=== PATIENT | male | born 1945 | race Two or more races ===

== ENCOUNTER 2023-07-07 02:24 | Emergency (ER) | payer MEDICARE, OTHER ==
[~2023-07-07] VITALS: Ht 165.1 cm; Wt 45.5 kg
[2023-07-07] MEDS ORDERED: methylPREDNISolone SOD SUCC 40 MG/ML VL IV ONE (02:30)
[2023-07-07] MEDS ORDERED: IPRATROPIUM BROM 0.5 MG/2.5ML INH SOL NEB ONE ×2 (02:30→02:45)
[2023-07-07] MEDS ORDERED: ALBUTEROL SULF 2.5 MG/0.5ML(0.5%) NEB SOLN NEB ONE ×2 (02:30→02:45)
[2023-07-07 02:33] VITALS: PULSE 88; RESP 20; O2SAT 100
[2023-07-07] MEDS ORDERED: SODIUM CHLORIDE 0.9% 1,000 ML IV ONE (02:45)
[2023-07-07] MEDS ORDERED: PANTOPRAZOLE 40 MG/10 ML VIAL INJ IV ONE (02:45)
[2023-07-07] MEDS ORDERED: ONDANSETRON HCL 4 MG/2 ML VIAL IV ONE (02:45)
[2023-07-07] MEDS ORDERED: VANCOMYCIN PER PHARMACY 1,000 MG IV SCH (02:45)
[2023-07-07] MEDS ORDERED: cefTRIAXone 1GM/50ML D5W 50 ML IV SCH (02:45)
[2023-07-07] MEDS ORDERED: ACETAMINOPHEN 325 MG TAB PO PRN (02:45)
[2023-07-07] MEDS ORDERED: MAGNESIUM SULFATE 1GM/100ML 100 ML IV ONE (03:00)
[2023-07-07] MEDS ORDERED: AZITHROMYCIN 500MG/ 250ML 250 ML IV ONE (03:00)
[2023-07-07 03:12] LABS: INR 1.19 (0.9-1.15); Partial Thromboplastin Time 20.5 SEC (24.5-34.5); Prothrombin Time 12.4 sec (9.3-11.8)
[2023-07-07 03:14] LABS: Base Excess -0.7 mmol/L (-2.0-2.0)
[2023-07-07 03:26] LABS: Alanine Aminotransferase 11 U/L (7-40); Albumin 3.9 g/dL (3.2-4.8); Alkaline Phosphatase 75 U/L (46-116); Anion Gap 5 (5-15); Aspartate Aminotransferase 14 U/L (13-40); BUN/Creatinine Ratio 16.3 (10.0-20.0); Bilirubin, Total 0.4 mg/dL (0.2-1.0); Blood Urea Nitrogen 16 mg/dL (9-23); Calcium 8.6 mg/dL (8.7-10.4); Carbon Dioxide 27 mmol/L (20-30); Chloride 107 mmol/L (98-107); Glucose 142 mg/dL (74-106); Magnesium 1.7 mg/dL (1.6-2.6); Sodium 139 mmol/L (136-145); Total Protein 6.2 g/dL (5.7-8.2)
[2023-07-07 04:16] LABS: Basophils # (auto) 0 10 ^3/uL (0-0.2); Basophils % (auto) 0.1 % (0.0-2.0); Eosinophils # (auto) 0.1 10 ^3/uL (0-0.8); Eosinophils % (auto) 0.5 % (0.0-7.0); Hematocrit 42.2 % (41.0-53.0); Hemoglobin 13.9 g/dL (13.5-17.5); Lymphocytes # (auto) 1.1 10 ^3/uL (0.4-5.4); Lymphocytes % (auto) 9.1 % (10.0-50.0); Mean Corpuscular Hemoglobin 32.3 pg (28.0-32.0); Mean Corpuscular Hgb Conc. 32.8 g/dL (32.0-36.0); Mean Corpuscular Volume 98.3 fL (80.0-100.0); Monocytes # (auto) 0.6 10 ^3/uL (0-1.3); Monocytes % (auto) 5.4 % (0.0-12.0); Neutrophils # (auto) 9.9 10 ^3/uL (1.6-8.6); Neutrophils % (auto) 84.9 % (37.0-80.0); Nucleated Red Blood Cells % 0.1 %; Red Cell Distribution Width 13.9 % (11.8-14.3); White Blood Cell 11.7 10^3/uL (4.4-10.8)
[2023-07-07 04:29] LABS: Rapid Influenza A Negative (Negative); Rapid Influenza B Negative (Negative)
[2023-07-07 04:31] LABS: COVID19 ANTIGEN SOFIA FIA NEGATIVE (NEGATIVE)
[2023-07-07] MEDS ORDERED: VANCOMYCIN 1GM/250ML 250 ML IV ONE (05:15)
[2023-07-07 07:50] VITALS: PULSE 83; RESP 19; O2SAT 99
[2023-07-07 09:18] VITALS: BP 118/95; PULSE 83; RESP 21; TEMP 98; O2SAT 98
[2023-07-07] MEDS ORDERED: ENOXAPARIN SOD 40 MG/0.4 ML SYRINGE SC SCH (10:00)
== END 2023-07-07 09:48 | disposition short-term general hospital (02) ==
LOC: EDBD 02:24 → ER 02:24
DX: R06.02 Shortness of breath (principal); R06.2 Wheezing; J44.9 Chronic obstructive pulmonary disease, unspecified; Z79.899 Other long term (current) drug therapy
CPT/HCPCS: 36415; 36600; 71045; 80053; 82805; 83605; 83735; 83880; 84484; 85610; 85730; 86850; 86900; 86901; 87040; 87426; 87804; 94640; 94644; 94660; 96365; 96366; 96367; 96368; 96375; 99285; C9113; J0456; J0696; J2405; J2920; J3370; J3475; J7644; 93005

== ENCOUNTER 2023-09-12 10:42 | Emergency (ER) | payer OTHER ==
[~2023-09-12] VITALS: Ht 167.6 cm; Wt 54.5 kg
[2023-09-12 11:04] VITALS: PULSE 84; RESP 21; O2SAT 99
[2023-09-12] MEDS ORDERED: ALBUTEROL SULF 2.5 MG/0.5ML(0.5%) NEB SOLN HHN ONE (11:45)
[2023-09-12] MEDS ORDERED: IPRATROPIUM BROM 0.5 MG/2.5ML INH SOL HHN ONE (11:45)
[2023-09-12] MEDS ORDERED: methylPREDNISolone SOD SUCC 125 MG/2 ML VL IV ONE (11:45)
[2023-09-12 12:05] LABS: Basophils # (auto) 0 10 ^3/uL (0-0.2); Basophils % (auto) 0.3 % (0.0-2.0); Eosinophils # (auto) 0.1 10 ^3/uL (0-0.8); Eosinophils % (auto) 0.9 % (0.0-7.0); Hematocrit 42.5 % (41.0-53.0); Hemoglobin 13.8 g/dL (13.5-17.5); Lymphocytes # (auto) 1.1 10 ^3/uL (0.4-5.4); Lymphocytes % (auto) 14.2 % (10.0-50.0); Mean Corpuscular Hemoglobin 32.3 pg (28.0-32.0); Mean Corpuscular Hgb Conc. 32.5 g/dL (32.0-36.0); Mean Corpuscular Volume 99.2 fL (80.0-100.0); Monocytes # (auto) 0.5 10 ^3/uL (0-1.3); Monocytes % (auto) 7.3 % (0.0-12.0); Neutrophils # (auto) 5.7 10 ^3/uL (1.6-8.6); Neutrophils % (auto) 77.3 % (37.0-80.0); Red Blood Cells 4.28 10^6/uL (4.5-5.90); Red Cell Distribution Width 14.5 % (11.8-14.3); White Blood Cell 7.4 10^3/uL (4.4-10.8)
[2023-09-12] MEDS ORDERED: ALBUTEROL MEDNEB 2.5 mg/3ml NEB ONE (12:21)
[2023-09-12 12:26] LABS: Alanine Aminotransferase 15 U/L (7-40); Albumin 4.1 g/dL (3.2-4.8); Alkaline Phosphatase 71 U/L (46-116); Anion Gap 4 (5-15); BUN/Creatinine Ratio 18.6 (10.0-20.0); Bilirubin, Total 0.7 mg/dL (0.2-1.0); Blood Urea Nitrogen 16 mg/dL (9-23); Calcium 8.6 mg/dL (8.7-10.4); Carbon Dioxide 31 mmol/L (20-30); Chloride 105 mmol/L (98-107); Glucose 103 mg/dL (74-106); Magnesium 1.9 mg/dL (1.6-2.6); Potassium 4.2 mmol/L (3.5-5.1); Sodium 140 mmol/L (136-145)
[2023-09-12 12:27] LABS: Total Protein 5.9 g/dL (5.7-8.2)
[2023-09-12 12:33] LABS: Aspartate Aminotransferase 17 U/L (13-40)
[2023-09-12 12:39] LABS: COVID19 ANTIGEN SOFIA FIA NEGATIVE (NEGATIVE)
[2023-09-12 12:42] LABS: Base Excess 0.5 mmol/L (-2.0-2.0)
[2023-09-12 17:52] LABS: Urine Bacteria NONE SEEN /hpf (None Seen); Urine Blood Negative /uL (Negative); Urine Clarity Clear (Clear); Urine Color Yellow (Yellow); Urine Mucus FEW (None Seen); Urine Protein, UAD TRACE (Negative); Urine Specific Gravity 1.026 (1.001-1.035); Urine WBC 1 /hpf (0 - 3)
[2023-09-12 19:30] VITALS: PULSE 71; RESP 14; O2SAT 98
[2023-09-13 00:15] VITALS: BP 139/55; PULSE 79; RESP 18; TEMP 98.4; O2SAT 97
== END 2023-09-13 00:34 | disposition short-term general hospital (02) ==
LOC: EDBD 10:42 → ER 10:42
DX: J96.01 Acute respiratory failure with hypoxia (principal); J44.1 Chronic obstructive pulmonary disease with (acute) exacerbation; Z94.9 Transplanted organ and tissue status, unspecified; Z20.822 Contact with and (suspected) exposure to COVID-19
CPT/HCPCS: 36415; 36600; 71045; 80053; 81001; 82805; 83605; 83735; 83880; 84484; 85025; 85379; 87040; 87426; 93005; 94640; 96374; 99291; J2930; J7644

== ENCOUNTER 2023-09-25 15:55 | Emergency (ER) | payer OTHER ==
[~2023-09-25] VITALS: Ht 180.3 cm; Wt 65.0 kg
[2023-09-25 17:14] LABS: Basophils # (auto) 0 10 ^3/uL (0-0.2); Basophils % (auto) 0.2 % (0.0-2.0); Eosinophils # (auto) 0.1 10 ^3/uL (0-0.8); Eosinophils % (auto) 1.2 % (0.0-7.0); Hematocrit 44.2 % (41.0-53.0); Hemoglobin 14.6 g/dL (13.5-17.5); Lymphocytes # (auto) 1.6 10 ^3/uL (0.4-5.4); Lymphocytes % (auto) 21.2 % (10.0-50.0); Mean Corpuscular Hemoglobin 32.8 pg (28.0-32.0); Mean Corpuscular Volume 99.2 fL (80.0-100.0); Monocytes # (auto) 0.6 10 ^3/uL (0-1.3); Monocytes % (auto) 7.7 % (0.0-12.0); Neutrophils # (auto) 5.1 10 ^3/uL (1.6-8.6); Neutrophils % (auto) 69.7 % (37.0-80.0); Nucleated Red Blood Cells % 0.1 %; Red Blood Cells 4.45 10^6/uL (4.5-5.90); Red Cell Distribution Width 14.7 % (11.8-14.3); White Blood Cell 7.3 10^3/uL (4.4-10.8)
[2023-09-25 17:27] LABS: Alanine Aminotransferase 16 U/L (7-40); Albumin 4.2 g/dL (3.2-4.8); Alkaline Phosphatase 62 U/L (46-116); Anion Gap 2 (5-15); Aspartate Aminotransferase 15 U/L (13-40); BUN/Creatinine Ratio 12.2 (10.0-20.0); Bilirubin, Total 0.5 mg/dL (0.2-1.0); Blood Urea Nitrogen 11 mg/dL (9-23); Calcium 8.9 mg/dL (8.5-10.1); Carbon Dioxide 36 mmol/L (20-30); Chloride 106 mmol/L (98-107); Glucose 84 mg/dL (74-106); Potassium 3.9 mmol/L (3.5-5.1); Sodium 144 mmol/L (136-145); Total Protein 6.2 g/dL (5.7-8.2)
[2023-09-25 17:40] LABS: Lipase 35 U/L (12-53)
[2023-09-25] MEDS ORDERED: IPRATROPIUM BROM 0.5 MG/2.5ML INH SOL NEB ONE (18:15)
[2023-09-25] MEDS ORDERED: ALBUTEROL SULF 2.5 MG/0.5ML(0.5%) NEB SOLN NEB ONE (18:15)
[2023-09-25] MEDS ORDERED: methylPREDNISolone SOD SUCC 125 MG/2 ML VL IV ONE (18:15)
[2023-09-25] MEDS ORDERED: IPRATROPIUM BROM 0.5 MG/2.5ML INH SOL ONE (18:19)
[2023-09-25] MEDS ORDERED: ALBUTEROL SULF 2.5 MG/0.5ML(0.5%) NEB SOLN ONE (18:19)
[2023-09-25 23:16] VITALS: PULSE 86; RESP 25; O2SAT 94
[2023-09-25] MEDS ORDERED: methylPREDNISolone SOD SUCC 125 MG/2 ML VL ONE (23:27)
[2023-09-25] MEDS ORDERED: HYDROcodone-ACET 5/325MG TAB ONE (23:29)
[2023-09-25] MEDS ORDERED: HYDROcodone-ACET 5/325MG TAB PO ONE (23:30)
[2023-09-26 00:21] VITALS: BP 159/74; PULSE 64; RESP 24; TEMP 97.4; O2SAT 94
== END 2023-09-26 00:31 | disposition short-term general hospital (02) ==
LOC: ER 15:55
DX: K56.609 Unspecified intestinal obstruction, unspecified as to partial versus complete obstruction (principal); J44.1 Chronic obstructive pulmonary disease with (acute) exacerbation; K59.00 Constipation, unspecified; F17.210 Nicotine dependence, cigarettes, uncomplicated; Z90.49 Acquired absence of other specified parts of digestive tract; Z90.89 Acquired absence of other organs
CPT/HCPCS: 36415; 71045; 74176; 80053; 83605; 83690; 83880; 84484; 85025; 93005; 94640; 96374; 99285; J2930; J7644

== ENCOUNTER 2024-05-17 17:38 | Emergency (ER) | payer OTHER ==
[~2024-05-17] VITALS: Ht 162.6 cm; Wt 59.0 kg
[2024-05-17 18:00] VITALS: PULSE 81; RESP 22; O2SAT 96
[2024-05-17 18:16] LABS: Basophils # (auto) 0.1 10 ^3/uL (0-0.2); Basophils % (auto) 0.4 % (0.0-2.0); Eosinophils # (auto) 0.1 10 ^3/uL (0-0.8); Eosinophils % (auto) 0.5 % (0.0-7.0); Hematocrit 41.7 % (41.0-53.0); Hemoglobin 14.1 g/dL (13.5-17.5); Lymphocytes # (auto) 0.6 10 ^3/uL (0.4-5.4); Lymphocytes % (auto) 3.8 % (10.0-50.0); Mean Corpuscular Hemoglobin 32.6 pg (28.0-32.0); Mean Corpuscular Hgb Conc. 33.8 g/dL (32.0-36.0); Mean Corpuscular Volume 96.5 fL (80.0-100.0); Monocytes # (auto) 0.9 10 ^3/uL (0-1.3); Monocytes % (auto) 5.2 % (0.0-12.0); Neutrophils # (auto) 14.7 10 ^3/uL (1.6-8.6); Neutrophils % (auto) 90.1 % (37.0-80.0); Red Blood Cells 4.32 10^6/uL (4.5-5.90); Red Cell Distribution Width 14.4 % (11.8-14.3); White Blood Cell 16.3 10^3/uL (4.4-10.8)
[2024-05-17 18:37] LABS: Alanine Aminotransferase 14 U/L (7-40); Alkaline Phosphatase 71 U/L (46-116); Anion Gap 2 (5-15); Aspartate Aminotransferase 12 U/L (13-40); BUN/Creatinine Ratio 15.4 (10.0-20.0); Blood Urea Nitrogen 12 mg/dL (9-23); Calcium 9.3 mg/dL (8.7-10.4); Carbon Dioxide 31 mmol/L (20-30); Chloride 101 mmol/L (98-107); Glucose 110 mg/dL (74-106); Magnesium 2.1 mg/dL (1.6-2.6); Potassium 4.4 mmol/L (3.5-5.1); Sodium 134 mmol/L (136-145)
[2024-05-17 18:38] LABS: Bilirubin, Total 0.7 mg/dL (0.2-1.0)
[2024-05-17] MEDS: methylPREDNISolone SOD SUCC 125 MG/2 ML VL IV ONE (18:40)
[2024-05-17 18:41] LABS: INR 1.03 (0.9-1.15); Partial Thromboplastin Time 27.6 SEC (24.5-34.5); Prothrombin Time 10.9 sec (9.3-11.8)
[2024-05-17] MEDS: IPRATROPIUM BROM 0.5 MG/2.5ML INH SOL HHN ONE (18:51)
[2024-05-17] MEDS: ALBUTEROL SULF 2.5 MG/0.5ML(0.5%) NEB SOLN HHN ONE (18:52)
[2024-05-17 18:55] LABS: Albumin 3.9 g/dL (3.2-4.8)
[2024-05-17] MEDS: ONDANSETRON HCL 4 MG/2 ML VIAL IV ONE ×2 (19:28→23:02)
[2024-05-17] MEDS: MORPHINE SULFATE 4 MG/ML SYR/VIAL IV ONE (19:29)
[2024-05-17] MEDS: AZITHROMYCIN 500MG/ 250ML 250 ML IV ONE (20:20)
[2024-05-17 21:13] LABS: Base Excess 4.1 mmol/L (-2.0-2.0)
[2024-05-17 21:38] LABS: COVID19 ANTIGEN SOFIA FIA NEGATIVE (NEGATIVE)
[2024-05-17 21:39] LABS: Rapid Influenza A Negative (Negative); Rapid Influenza B Negative (Negative)
[2024-05-17] MEDS: MORPHINE SULFATE INJ 2 MG/ml SYRG IV ONE (23:03)
[2024-05-18 01:58] VITALS: BP 112/43; PULSE 80; RESP 16; TEMP 98.5; O2SAT 96
== END 2024-05-18 01:59 | disposition admitted as inpatient to this hospital (09) ==
LOC: EDBD 17:38 → ER 17:39
DX: J44.1 Chronic obstructive pulmonary disease with (acute) exacerbation (principal); J96.01 Acute respiratory failure with hypoxia; F17.210 Nicotine dependence, cigarettes, uncomplicated; Z98.890 Other specified postprocedural states; Z20.822 Contact with and (suspected) exposure to COVID-19; Z79.899 Other long term (current) drug therapy
CPT/HCPCS: 36415; 36600; 71045; 80053; 82805; 83605; 83735; 83880; 84484; 85025; 85610; 85730; 87426; 87804; 93005; 96365; 96366; 96375; 96376; 99285; J0456; J2270; J2405; J2919

== ENCOUNTER 2024-06-06 21:01 | Emergency (ER) | payer OTHER ==
[~2024-06-06] VITALS: Ht 167.6 cm; Wt 54.5 kg
[2024-06-06] MEDS: ENOXAPARIN SOD 60 MG/0.6 ML SYRINGE SC ONE (21:30)
[2024-06-06 21:40] VITALS: PULSE 81; RESP 19; TEMP 98; O2SAT 99
[2024-06-06 21:51] LABS: Basophils # (auto) 0 10 ^3/uL (0-0.2); Basophils % (auto) 0.2 % (0.0-2.0); Eosinophils # (auto) 0.1 10 ^3/uL (0-0.8); Eosinophils % (auto) 1.2 % (0.0-7.0); Hematocrit 38.1 % (41.0-53.0); Hemoglobin 12.6 g/dL (13.5-17.5); Lymphocytes # (auto) 0.7 10 ^3/uL (0.4-5.4); Lymphocytes % (auto) 8.6 % (10.0-50.0); Mean Corpuscular Hemoglobin 32.7 pg (28.0-32.0); Mean Corpuscular Hgb Conc. 33.2 g/dL (32.0-36.0); Mean Corpuscular Volume 98.6 fL (80.0-100.0); Monocytes # (auto) 0.7 10 ^3/uL (0-1.3); Monocytes % (auto) 8.9 % (0.0-12.0); Neutrophils # (auto) 6.5 10 ^3/uL (1.6-8.6); Neutrophils % (auto) 81.1 % (37.0-80.0); Platelet Count (auto) 173 10^3/uL (140-450); Red Blood Cells 3.86 10^6/uL (4.5-5.90); Red Cell Distribution Width 15.6 % (11.8-14.3)
[2024-06-06 21:55] LABS: Base Excess 3.4 mmol/L (-2.0-2.0)
[2024-06-06] MEDS: ALBUTEROL SULF 2.5 MG/0.5ML(0.5%) NEB SOLN NEB ONE (21:57)
[2024-06-06] MEDS: ONDANSETRON HCL 4 MG/2 ML VIAL IV ONE (21:57)
[2024-06-06] MEDS: IPRATROPIUM BROM 0.5 MG/2.5ML INH SOL NEB ONE (21:57)
[2024-06-06] MEDS: ASPirin-EC 325mg tab PO ONE (21:57)
[2024-06-06] MEDS: MORPHINE SULFATE 4 MG/ML SYR/VIAL IV ONE (21:58)
[2024-06-06] MEDS: levoFLOXacin 500MG 100 ML IV ONE (21:58)
[2024-06-06 22:11] LABS: Alanine Aminotransferase 34 U/L (7-40); Alkaline Phosphatase 58 U/L (46-116); Anion Gap 4 (5-15); Aspartate Aminotransferase 22 U/L (13-40); BUN/Creatinine Ratio 11.1 (10.0-20.0); Bilirubin, Total 0.5 mg/dL (0.2-1.0); Blood Urea Nitrogen 7 mg/dL (9-23); Calcium 9.1 mg/dL (8.7-10.4); Carbon Dioxide 29 mmol/L (20-30); Chloride 102 mmol/L (98-107); Glucose 108 mg/dL (74-106); Potassium 3.8 mmol/L (3.5-5.1); Sodium 135 mmol/L (136-145); Total Protein 6.2 g/dL (5.7-8.2)
[2024-06-06 22:50] LABS: INR 1.08 (0.9-1.15); Partial Thromboplastin Time 28.2 SEC (24.5-34.5); Prothrombin Time 11.4 sec (9.3-11.8)
[2024-06-06] MEDS: IOHEXOL 300 MG/ML 100ML BOTTLE IJ ONE (23:17)
[2024-06-07] MEDS: VANCOMYCIN 1GM/200ML 200 ML IV ONE (01:37)
[2024-06-07] MEDS: MORPHINE SULFATE INJ 2 MG/ml SYRG IV ONE (03:06)
[2024-06-07] MEDS: ONDANSETRON HCL 4 MG/2 ML VIAL IV ONE (03:07)
[2024-06-07 03:22] LABS: Urine Bacteria None Seen /hpf (None Seen)
[2024-06-07 03:37] LABS: Urine Blood Negative /uL (Negative); Urine Clarity Clear (Clear); Urine Color Yellow (Yellow); Urine Protein, UAD TRACE (Negative); Urine Specific Gravity 1.036 (1.001-1.035); Urine Urobilinogen Normal (Negative); Urine WBC <1 /hpf (0 - 3)
[2024-06-07 06:00] VITALS: BP 114/63; PULSE 65; RESP 12; O2SAT 99
== END 2024-06-07 06:44 | disposition home or self-care (01) ==
LOC: EDBD 21:01 → ER 21:01
DX: J44.1 Chronic obstructive pulmonary disease with (acute) exacerbation (principal); J18.9 Pneumonia, unspecified organism; M27.2 Inflammatory conditions of jaws; R79.89 Other specified abnormal findings of blood chemistry; E86.0 Dehydration; Z98.890 Other specified postprocedural states; Z87.891 Personal history of nicotine dependence
CPT/HCPCS: 36415; 36600; 71045; 71275; 80053; 81001; 82805; 83880; 84484; 85025; 85379; 85610; 85730; 93005; 94640; 96365; 96367; 96372; 96375; 96376; 99285; J1650; J1956; J2270; J2405; J3370; Q9967

== ENCOUNTER 2024-06-11 13:29 | Emergency (ER) | payer OTHER ==
[~2024-06-11] VITALS: Ht 167.6 cm; Wt 54.5 kg
[2024-06-11] MEDS: ONDANSETRON HCL 4 MG/2 ML VIAL IV ONE (13:58)
[2024-06-11] MEDS: MORPHINE SULFATE 4 MG/ML SYR/VIAL IV ONE (13:58)
[2024-06-11] MEDS: SODIUM CHLORIDE 0.9% 500 ML IV ONE (14:00)
[2024-06-11 14:16] LABS: Basophils # (auto) 0 10 ^3/uL (0-0.2); Basophils % (auto) 0.5 % (0.0-2.0); Eosinophils # (auto) 0.1 10 ^3/uL (0-0.8); Eosinophils % (auto) 1.1 % (0.0-7.0); Hematocrit 37.9 % (41.0-53.0); Hemoglobin 12.5 g/dL (13.5-17.5); Lymphocytes # (auto) 0.9 10 ^3/uL (0.4-5.4); Lymphocytes % (auto) 11.8 % (10.0-50.0); Mean Corpuscular Hemoglobin 33.1 pg (28.0-32.0); Mean Corpuscular Hgb Conc. 33.1 g/dL (32.0-36.0); Mean Corpuscular Volume 100.2 fL (80.0-100.0); Monocytes # (auto) 0.6 10 ^3/uL (0-1.3); Neutrophils # (auto) 5.7 10 ^3/uL (1.6-8.6); Neutrophils % (auto) 78.6 % (37.0-80.0); Platelet Count (auto) 158 10^3/uL (140-450); Red Blood Cells 3.78 10^6/uL (4.5-5.90); Red Cell Distribution Width 15.5 % (11.8-14.3); White Blood Cell 7.2 10^3/uL (4.4-10.8)
[2024-06-11 14:40] LABS: Alanine Aminotransferase 23 U/L (7-40); Albumin 3.7 g/dL (3.2-4.8); Alkaline Phosphatase 57 U/L (46-116); Anion Gap 3 (5-15); Aspartate Aminotransferase 21 U/L (13-40); BUN/Creatinine Ratio 12.2 (10.0-20.0); Blood Urea Nitrogen 10 mg/dL (9-23); Calcium 9.4 mg/dL (8.7-10.4); Carbon Dioxide 33 mmol/L (20-30); Chloride 103 mmol/L (98-107); Glucose 95 mg/dL (74-106); Potassium 4.1 mmol/L (3.5-5.1); Sodium 139 mmol/L (136-145)
[2024-06-11 14:41] LABS: Bilirubin, Total 0.4 mg/dL (0.2-1.0); Total Protein 5.8 g/dL (5.7-8.2)
[2024-06-11 15:30] VITALS: BP 142/62; PULSE 82; RESP 17; TEMP 97.3; O2SAT 97
== END 2024-06-11 16:13 | disposition home or self-care (01) ==
LOC: ER 13:29 → EDUNIT# 13:29 → EDBD 13:29 → ER 16:13
DX: M27.2 Inflammatory conditions of jaws (principal); J44.9 Chronic obstructive pulmonary disease, unspecified; Z90.49 Acquired absence of other specified parts of digestive tract; Z87.891 Personal history of nicotine dependence
CPT/HCPCS: 36415; 70486; 80053; 85025; 96361; 96374; 96375; 99285; J2270; J2405; J7040

== ENCOUNTER 2024-06-15 23:09 | Emergency (ER) | payer OTHER ==
[~2024-06-15] VITALS: Ht 167.6 cm; Wt 54.5 kg
[2024-06-16] MEDS: IOHEXOL 300 MG/ML 100ML BOTTLE IJ ONE (00:32)
[2024-06-16 00:42] LABS: Basophils # (auto) 0 10 ^3/uL (0-0.2); Basophils % (auto) 0.4 % (0.0-2.0); Eosinophils # (auto) 0.2 10 ^3/uL (0-0.8); Eosinophils % (auto) 2.1 % (0.0-7.0); Hematocrit 36.4 % (41.0-53.0); Hemoglobin 12.4 g/dL (13.5-17.5); Lymphocytes # (auto) 0.6 10 ^3/uL (0.4-5.4); Lymphocytes % (auto) 8.4 % (10.0-50.0); Mean Corpuscular Hemoglobin 33.7 pg (28.0-32.0); Mean Corpuscular Volume 99.4 fL (80.0-100.0); Monocytes # (auto) 0.6 10 ^3/uL (0-1.3); Monocytes % (auto) 8.7 % (0.0-12.0); Neutrophils # (auto) 5.7 10 ^3/uL (1.6-8.6); Neutrophils % (auto) 80.4 % (37.0-80.0); Platelet Count (auto) 145 10^3/uL (140-450); Red Blood Cells 3.66 10^6/uL (4.5-5.90); Red Cell Distribution Width 15.2 % (11.8-14.3)
[2024-06-16 00:55] LABS: Alanine Aminotransferase 36 U/L (7-40); Albumin 3.9 g/dL (3.2-4.8); Alkaline Phosphatase 72 U/L (46-116); Anion Gap 6 (5-15); Aspartate Aminotransferase 39 U/L (13-40); BUN/Creatinine Ratio 10.7 (10.0-20.0); Blood Urea Nitrogen 8 mg/dL (9-23); Calcium 8.8 mg/dL (8.7-10.4); Carbon Dioxide 31 mmol/L (20-30); Chloride 102 mmol/L (98-107); Glucose 98 mg/dL (74-106); Lipase 23 U/L (12-53); Potassium 3.7 mmol/L (3.5-5.1); Sodium 139 mmol/L (136-145)
[2024-06-16 00:55] LABS: Urine Bacteria None Seen /hpf (None Seen)
[2024-06-16 00:56] LABS: Bilirubin, Total 0.4 mg/dL (0.2-1.0); Total Protein 5.9 g/dL (5.7-8.2)
[2024-06-16 01:05] LABS: Urine Amorphous Crystal FEW /hpf (None Seen); Urine Blood Negative /uL (Negative); Urine Clarity Turbid (Clear); Urine Color Light-Yellow (Yellow); Urine Protein, UAD Negative (Negative); Urine Specific Gravity 1.011 (1.001-1.035); Urine Urobilinogen Normal (Negative); Urine WBC 3 /hpf (0 - 3)
[2024-06-16] MEDS: ONDANSETRON HCL 4 MG/2 ML VIAL IV ONE ×2 (01:59→08:38)
[2024-06-16] MEDS: MORPHINE SULFATE 4 MG/ML SYR/VIAL IV ONE ×2 (02:00→08:39)
[2024-06-16 08:00] VITALS: PULSE 66; RESP 17; O2SAT 100
[2024-06-16 11:07] VITALS: BP 141/53; PULSE 62; RESP 18; TEMP 98.1; O2SAT 97
== END 2024-06-16 11:21 | disposition short-term general hospital (02) ==
LOC: ER 23:09 → EDBD 23:09 → ER 06-16 11:21
DX: K59.00 Constipation, unspecified (principal); J44.9 Chronic obstructive pulmonary disease, unspecified; Z98.890 Other specified postprocedural states; Z87.891 Personal history of nicotine dependence
CPT/HCPCS: 36415; 74177; 80053; 81001; 83690; 85025; 93005; 96374; 96375; 96376; 99285; J2270; J2405; Q9967

== ENCOUNTER 2024-12-27 12:57 | Emergency (ER) | payer OTHER ==
[~2024-12-27] VITALS: Ht 175.3 cm; Wt 60.0 kg
[~2024-12-27 12:57] MED LIST: ALBUTEROL SULF 2.5 MG/0.5ML(0.5%) NEB SOLN ONE; IPRATROPIUM BROM 0.5 MG/2.5ML INH SOL ONE
--- NOTE | 2024-12-27 13:08 | ED.PDOC ---
Ann. trauma (HPI) HPI Comments 79 y.o male with PMHx of COPD, on 2 liters of oxygen at home, and BPH, presents to the ED via EMS for a chief complaint of right rib pain s/p fall yesterday. EMS reports patient had a ground level fall from bed trying to get up to urinate. Patient reported his hip "gave out" and felt dizzy prior to falling. EMS reports patient had rails on his bed and patient fell right sided onto bed rail, causing trauma to rib side. Patient now has sharp 10/10 pain that is non radiating and worsens when coughing or deep inspiration. Patient does note having increased difficulty breathing today due to the pain and has nausea. He denies any chest pain, fever, chills, chest pain, vomiting, diarrhea, SOB. Time Seen by MD: 12:57 Primary Care Provider: EMILE Reviewed notes: Nurses Notes, Dry Cleaner Notes, Medications, Allergies Allergies: Coded Allergies: NO KNOWN ALLERGIES (Unverified , 07/07/23) Information Source: Patient, Emergency Med Personnel Mode of Arrival: EMS Severity: Moderate Timing: Days (1) Duration: Since onset Location: Other (right rib pain ) Mechanism: Fall Associated signs and symtoms: Other Past Medical History PAST MEDICAL HISTORY: COPD Past Medical History (Other): BPH and on 2 liters of oxygen Surgical History: Appendectomy, Cholecystectomy, Hernia Repair, Tonsillectomy Family History Family History: No family hx of Cancer, No family hx of DM, No family hx of Heart marjan Social History Smoker: Quit Greater Than 1 Year Alcohol: Denies ETOH Use Drugs: Denies Drug Use Lives In: Home Constitutional: denies: chills, diaphoresis, fatigue, fever, malaise, sweats, weakness, others EENTM: denies: blurred vision, double vision, ear bleeding, ear discharge, ear drainage, ear pain, ear ringing, eye pain, eye redness, hearing loss, mouth pain, mouth swelling, nasal discharge, nose bleeding, nose congestion, nose pain, photophobia, tearing, throat pain, throat swelling, voice changes, others Respiratory: reports: cough; denies: hemoptysis, orthopnea, SOB at rest, shortness of breath, SOB with excertion, stridor, wheezing, others Cardiovascular: denies: chest pain, dizzy spells, diaphoresis, Dyspnea on exertion, edema, irregular heart beat, left arm pain, lightheadedness, palpitations, PND, syncope, others Gastrointestinal: reports: nausea; denies: abdomen distended, abdominal pain, blood streaked bowels, constipated, diarrhea, dysphagia, difficulty swallowing, hematemesis, melena, poor appetite, poor fluid intake, rectal bleeding, rectal pain, vomiting, others Genitourinary: denies: burning, dysuria, flank pain, frequency, hematuria, incontinence, penile discharge, penile sore, pain, testicle pain, testicle swelling, urgency, others Neurological: denies: dizziness, fainting, headache, left sided numbness, left sided weakness, numbness, paresthesia, pre-existing deficit, right sided numbness, right sided weakness, seizure, speech problems, tingling, tremors, weakness, others Musculoskeletal: reports: others (right rib pain ); denies: back pain, gout, joint pain, joint swelling, muscle pain, muscle stiffness, neck pain Integumetry: denies: bruises, change in color, change in hair/nails, dryness, laceration, lesions, lumps, rash, wounds, others Allergic/Immunocompromised: denies: Difficulty Healing, Frequent Infections, Hives, Itching, others Hematologic/Lymphatic: denies: anemia, blood clots, easy bleeding, easy bruising, swollen glands, others Endocrine: denies: excessive hunger, excessive sweating, excessive thirst, excessive urination, flushing, intolerance to cold, intolerance to heat, unexplained weight gain, unexplained weight loss, others Psychiatric: denies: anxiety, bipolar disorder, depression, hopeless, panic disorder, schizophrenia, sleepless, suicidal, others All Other Systems: Reviewed and Negative Physical Exam General Appearance: Moderate Distress HEENT: Pale Conjuntivae (L), Pale Conjuntivae (R), Pharynx Normal, TMs Normal Neck: Full Range of Motion, Non-Tender, Normal, Normal Inspection Respiratory: Lungs Clear, No Accessory Muscle Use, No Respiratory Distress, Normal Breath Sounds, Other (Right rib tenderness) Cardiovascular: No Edema, No JVD, No Murmur, No Gallop, Normal Peripheral Pulses, Regular Rate/Rhythm Breast Exam: Deferred Gastrointestinal: No Organomegaly, Non Tender, No Pulsatile Mass, Normal Bowel Sounds, Soft Genitalia: Deferred Pelvic: Deferred Rectal: Deferred Extremities: No calf tenderness, Normal capillary refill, Normal inspection, Normal range of motion, Non-tender, No pedal edema Musculoskeletal : Apperance: Normal Neurologic: environmental compliance manager II-XII nml as Tested, Motor Weakness, Normal Affect, Normal Mood, No Sensory Deficits Cerebellar Function: Unable to Test Reflexes: Normal Skin: Dry, Pallor, Warm Lymphatic: No Adenopathy Was a procedure done? Was a procedure done?: No Differential Diagnosis Multiple Trauma: Closed Head Injury, Fractures, Contusion X-Ray, Labs, Meds, VS Vital Signs Date Time Temp Pulse Resp B/P (MAP) Pulse Ox O2 Delivery O2 Flow Rate FiO2 12/27/24 19:09 103 17 117/70 (86) 91 12/27/24 19:08 96 12/27/24 18:35 107 22 87/39 (55) 95 12/27/24 15:54 74 22 93/52 (66) 92 12/27/24 15:41 74 22 93/52 12/27/24 15:14 97 16 90 Nasal Cannula* 4 36 12/27/24 15:10 97.9 97 18 106/61 (76) 90 97.9 12/27/24 15:09 97 18 106/61 12/27/24 14:39 24 92 Nasal Cannula* 3 32 12/27/24 13:21 91 Nasal Cannula* 2 28 12/27/24 13:09 100.6 91 24 123/29 (60) 91 100.6 Lab Test 12/27/24 19:07 12/27/24 14:22 12/27/24 13:13 Range/Units Lactic Acid Level Pending 2.4 *H 0.4-2.0 mmol/L White Blood Count 10.3 4.4-10.8 10^3/uL Red Blood Count 4.20 L 4.5-5.90 10^6/uL Hemoglobin 14.1 13.5-17.5 g/dL Hematocrit 41.3 41.0-53.0 % Mean Corpuscular Volume 98.3 80.0-100.0 fL Mean Corpuscular Hemoglobin 33.6 H 28.0-32.0 pg Mean Corpuscular Hemoglobin Concent 34.2 32.0-36.0 g/dL Red Cell Distribution Width 14.4 H 11.8-14.3 % Platelet Count 121 L 140-450 10^3/uL Mean Platelet Volume 11.0 H 6.9-10.8 fL Neutrophils (%) (Auto) 37.0-80.0 % Lymphocytes (%) (Auto) 10.0-50.0 % Monocytes (%) (Auto) 0.0-12.0 % Basophils (%) (Auto) 0.0-2.0 % Neutrophils # (Auto) 1.6-8.6 10 ^3/uL Lymphocytes # (Auto) 0.4-5.4 10 ^3/uL Monocytes # (Auto) 0-1.3 10 ^3/uL Differential Total Cells Counted 100.0 100 Neutrophils % (Manual) 57 37.0-80.0 Band Neutrophils % (Manual) 27 Lymphocytes % (Manual) 3 L 10.0-50.0 Monocytes % (Manual) 11 0-12 Eosinophils % (Manual) 0 0-7 Basophils % (Manual) 0 0.0-2.0 Metamyelocytes % (manual) 1 Myelocytes % (Manual) 1 Promyelocytes % (Manual) 0 Blast Cells % (Manual) 0 Reactive Lymphocytes 0 Platelet Estimate Decreased Large Platelets Few Sodium Level 139 136-145 mmol/L Potassium Level 4.3 3.5-5.1 mmol/L Chloride Level 102 98-107 mmol/L Carbon Dioxide Level 30 20-31 mmol/L Anion Gap 7 5-15 Blood Urea Nitrogen 32 H 9-23 mg/dL Creatinine 1.21 0.700-1.30 mg/dL Glomerular Filtration Rate Calc 61 >90 mL/min BUN/Creatinine Ratio 26.4 H 10.0-20.0 Serum Glucose 96 74-106 mg/dL Calcium Level 10.1 8.7-10.4 mg/dL B-Type Natriuretic Peptide 232.63 0-100 pg/mL Current Medications Medications (Trade) Dose Ordered Sig/Mai Route Start Time Stop Time Status Last Admin Ipratropium Nenana (Atrovent Medneb) 1 mg ONCE ONCE [facility] 12/27/24 13:15 12/27/24 13:16 DC 12/27/24 14:38 Albuterol (Ventolin Medneb) 10 mg ONCE ONCE [facility] 12/27/24 13:15 12/27/24 13:16 DC 12/27/24 14:39 Morphine Sulfate 4 mg ONCE ONCE IV 12/27/24 13:15 12/27/24 13:16 DC 12/27/24 15:09 Ondansetron HCl (Zofran) 4 mg ONCE ONCE IV 12/27/24 13:15 12/27/24 13:16 DC 12/27/24 15:08 Ceftriaxone Sodium 50 ml @ 100 mls/hr ONCE ONCE IV 12/27/24 14:00 12/27/24 14:29 DC 12/27/24 15:08 Vancomycin HCl 250 ml @ 250 mls/hr ONCE ONCE IV 12/27/24 14:00 12/27/24 14:59 DC 12/27/24 15:36 Sodium Chloride 500 ml @ 500 mls/hr Q1H ONCE IV 12/27/24 18:30 12/27/24 19:29 DC 12/27/24 18:33 CHEST RADIOGRAPH. IMPRESSION: Bilateral multifocal pneumonia. Bilateral hilar region which may be from prominent pulmonary arteries. CT is recommended for further evaluation to exclude a mass. The patient was 1st lactic acid level came back elevated at 2.4 We did go ahead and do sepsis protocol The patient was given normal saline per sepsis protocol The patient was given Rocephin and vancomycin after blood cultures were drawn The patient also received a breathing treatment of albuterol and Atrovent. The patient's CBC came back with a normal white blood cell count The chemistry panel came back within normal limits At this time, we did contact [facility] and they have accepted the patient for transfer. We spoke to [facility] and they gave us the authorization number of [id number] The patient is being transferred at this time We have discussed the findings with the patient and he is in agreement with the management Images Reviewed?: Images reviewed and evaluated by me Time of 1ST Reevaluation: 13:02 Reevaluation 1ST: Unchanged Time of 2ND Reevaluation: 19:51 Reevaluation 2ND: Improved Patient Education/Counseling: Diagnosis, Treatment, Prognosis Family Education/Counseling: No Family Present Departure 1 Departure Time of Disposition: 19:50 Impression: Primary Impression: Chest wall contusion Qualified Codes: S20.219A - Contusion of unspecified front wall of thorax, initial encounter Additional Impressions: History of fall Bilateral pneumonia Qualified Codes: J18.9 - Pneumonia, unspecified organism Disposition: 51 HOSPICE/MEDICAL FACILITY Condition: Fair Critical Care Note Critical Care Time?: Yes (45 min-critical care time only) Stability Stability form required: Yes Stable for transfer: Intended for transfer (Health plan request transfer), To designated facility I personally scribed for SAMI SMITH MD ([email or web address]) on 12/27/24 at 13:08. Electronically submitted by Melinda Weller ([facility]). I personally scribed for SAMI SMITH MD ([email or web address]) on 12/27/24 at 14:00. Electronically submitted by Melinda Weller ([facility]). SAMI SMITH MD Dec 27, 2024 13:08
[2024-12-27 13:36] LABS: Chloride 102 mmol/L (98-107); Potassium 4.3 mmol/L (3.5-5.1); Sodium 139 mmol/L (136-145)
[2024-12-27 13:37] LABS: Anion Gap 7 (5-15); Calcium 10.1 mg/dL (8.7-10.4); Carbon Dioxide 30 mmol/L (20-31)
[2024-12-27 13:38] LABS: Hematocrit 41.3 % (41.0-53.0); Hemoglobin 14.1 g/dL (13.5-17.5); Mean Corpuscular Hemoglobin 33.6 pg (28.0-32.0); Mean Corpuscular Hgb Conc. 34.2 g/dL (32.0-36.0); Mean Corpuscular Volume 98.3 fL (80.0-100.0); Platelet Count (auto) 121 10^3/uL (140-450); Red Cell Distribution Width 14.4 % (11.8-14.3); White Blood Cell 10.3 10^3/uL (4.4-10.8)
[2024-12-27 13:41] LABS: Basophils % (manual) 0 (0.0-2.0); Blast Cells 0; Eosinophils % (manual) 0 (0-7); Promyelocytes % 0; Reactive Lymphocytes 0
[2024-12-27 13:42] LABS: BUN/Creatinine Ratio 26.4 (10.0-20.0); Glucose 96 mg/dL (74-106)
[2024-12-27 13:48] LABS: Blood Urea Nitrogen 32 mg/dL (9-23)
--- NOTE | 2024-12-27 13:49 | DVH ---
CHEST RADIOGRAPH Indication: right rib pain Technique: Single frontal view of the chest was obtained Comparison: XY CHEST PORTABLE on DOS: 07/04/24, XY CHEST PORTABLE on DOS: 06/06/24, XY CHEST PORTABLE o n DOS: 05/17/24 FINDINGS: Lines and Tubes: None Lungs: Right upper lung zone, Minimal right lower lung zone and left mid and lower lung zone opacitie s which may represent multifocal pneumonia. There is redemonstration of fullness of bilateral hilar r egion Pleura: No effusion. No pneumothorax. Cardiomediastinal contours: Unremarkable Bones: No acute osseous abnormality. IMPRESSION: Bilateral multifocal pneumonia. Bilateral hilar region which may be from prominent pulmonary arteries. CT is recommended for further evaluation to exclude a mass.
[2024-12-27] MEDS: IPRATROPIUM BROM 0.5 MG/2.5ML INH SOL HHN ONE (14:38)
[2024-12-27] MEDS: ALBUTEROL SULF 2.5 MG/0.5ML(0.5%) NEB SOLN HHN ONE (14:39)
[2024-12-27 15:07] LABS: Lactic Acid w/Reflex 2.4 mmol/L (0.4-2.0)
[2024-12-27] MEDS: cefTRIAXone 1GM/50ML D5W 50 ML IV ONE (15:08)
[2024-12-27] MEDS: ONDANSETRON HCL 4 MG/2 ML VIAL IV ONE (15:08)
[2024-12-27] MEDS: MORPHINE SULFATE 4 MG/ML SYR/VIAL IV ONE (15:09)
[2024-12-27 15:14] VITALS: PULSE 97; RESP 16; O2SAT 90
[2024-12-27] MEDS: VANCOMYCIN 1GM/250ML KIT 250 ML IV ONE (15:36)
[2024-12-27 15:42] LABS: Band Neutrophils % (manual) 27; Large Platelets FEW; Lymphocytes % (manual) 3 (10.0-50.0); Metamyelocytes % 1; Monocytes % (manual) 11 (0-12); Myelocytes % 1; Platelet Estimate Decreased
[2024-12-27] MEDS: SODIUM CHLORIDE 0.9% 500 ML IV ONE ×2 (18:33→20:15)
--- NOTE | 2024-12-27 19:10 | ECG ---
[facility] Test Date: 2024-12-27 Test Time: 19:08:20 Pat Name: MARGARET RUSSO Department: ED Room: Gender: M Rigger Chief: Emilie : 1945 Requested By: SAMI SMITH Order Number: [id number] Reading MD: Santos Guevara Measurements Intervals [place] Rate: 96 P: 0 AL: 0 QRS: 59 QRSD: 93 T: 143 QT: 345 QTc: 436 Interpretive Statements Atrial fibrillation Nonspecific T abnormalities, lateral leads Baseline wander in lead(s) I,II,aVR,aVL,aVF,V1,V2,V3 Electronically Signed On 12-29-2024 22:35:46 PDT by Santos Guevara Please click the below link to view image of tracing.
[2024-12-27 19:30] VITALS: PULSE 95; RESP 16; O2SAT 94
[2024-12-27] MEDS ORDERED: MORPHINE SULFATE 4 MG/ML SYR/VIAL IV ONE (19:45)
[2024-12-27] MEDS: MORPHINE SULFATE INJ 2 MG/ml SYRG IV ONE (20:18)
[2024-12-28 00:59] VITALS: BP 103/51; PULSE 98; RESP 12; TEMP 98.8; O2SAT 96
== END 2024-12-28 01:12 | disposition short-term general hospital (02) ==
LOC: EDBD 12:57 → ER 12:57
DX: S20.219A Contusion of unspecified front wall of thorax, initial encounter (principal); J18.9 Pneumonia, unspecified organism; J44.9 Chronic obstructive pulmonary disease, unspecified; Z90.49 Acquired absence of other specified parts of digestive tract; Z90.89 Acquired absence of other organs; Z98.890 Other specified postprocedural states; Z87.891 Personal history of nicotine dependence; W06.XXXA Fall from bed, initial encounter; Y93.89 Activity, other specified; Y92.89 Other specified places as the place of occurrence of the external cause; Y99.8 Other external cause status
CPT/HCPCS: 36415; 71045; 80048; 83605; 83880; 85007; 85027; 87040; 93005; 94640; 96361; 96365; 96368; 96375; 96376; 99291; J0696; J2270; J2405; J3370; J7040